=== PATIENT | female | born 1945 | race Caucasian/White ===

== ENCOUNTER 2018-03-29 00:41 | Emergency (ER) | payer MEDICARE ==
[2018-03-29] MEDS ORDERED: Metoclopramide 10 MG/2 ML SDV IVPUSH ONE (01:12)
[2018-03-29] MEDS ORDERED: fentaNYL 100 MCG/2 ML SDV IVPUSH ONE ×2 (01:12→01:58)
[2018-03-29] MEDS ORDERED: Sodium Chloride 0.9% 1,000 ML IV ONE (01:12)
--- NOTE | 2018-03-29 01:12 | EDM.PDOC ---
ED HPI GENERAL MEDICAL PROBLEM - General Chief Complaint: Abdominal Pain Stated Complaint: ABD PAIN, HIGH BP [id number] Time Seen by Provider: 03/29/18 01:04 Source of Information: Reports: Patient History Limitations: Reports: No Limitations - History of Present Illness INITIAL COMMENTS - FREE TEXT/NARRATIVE: ED with c/o severe cramping vomiting and diarrhea starting at 1100. Emesis x2 and 3 loosed stools. Denies presence of blood. No other family members ill. BP elevated, states takes Starr berries to control , No primary care. Has not checked BP for years. Lower Abdominal Pain Score (Numeric/FACES): 8 - Related Data Allergies Allergy/AdvReac Type Severity Reaction Status Date / Time Penicillins Allergy Anaphylactic Verified 03/29/18 00:48 Shock Sulfa (Sulfonamide Allergy Anaphylactic Verified 03/29/18 00:48 Antibiotics) Shock tetracycline Allergy Anaphylactic Verified 03/29/18 00:48 Shock Home Meds: Home Meds [facility] [[place] [facility]] 1 tab PO DAILY 03/29/18 [History] ED ROS GENERAL - Review of Systems Review Of Systems: ROS reveals no pertinent complaints other than HPI. Constitutional: Denies: Fever, Chills HEENT: Reports: No Symptoms Respiratory: Reports: No Symptoms Cardiovascular: Reports: No Symptoms GI/Abdominal: Reports: Abdominal Pain, Diarrhea, Nausea, Vomiting : Reports: No Symptoms Musculoskeletal: Reports: No Symptoms Skin: Reports: No Symptoms Neurological: Reports: No Symptoms Psychiatric: Reports: Anxiety ED EXAM, GI/ABD - Physical Exam Exam: See Below Exam Limited By: No Limitations General Appearance: Alert, Anxious, Moderate Distress Ears: Normal External Exam Nose: Normal Inspection Throat/Mouth: Normal Inspection, Normal Lips Head: Atraumatic, Normocephalic Neck: Normal Inspection, Supple, Full Range of Motion Respiratory/Chest: No Respiratory Distress, Lungs Clear, Normal Breath Sounds Cardiovascular: Normal Peripheral Pulses GI/Abdominal Exam: Abnormal Bowel Sounds (hyperactive [id number]). No: Distended Rectal (Female) Exam: Normal Exam, Normal Rectal Tone, Heme - Stool Back Exam: Normal Inspection Extremities: Normal Inspection Neurological: Alert, Oriented, Normal Cognition Psychiatric: Anxious Skin Exam: Warm, Dry, Intact, Pallor Course - Vital Signs Last Recorded V/S: Last Vital Signs Temp 97.4 F 03/29/18 00:52 Pulse 73 03/29/18 00:52 Resp 21 H 03/29/18 00:52 BP 206/106 H 03/29/18 00:52 Pulse Ox 98 03/29/18 00:52 - Orders/Labs/Meds Labs: Laboratory Tests 03/29/18 03/29/18 03/29/18 Range/Units 00:55 00:55 00:55 WBC 15.3 H (5.0-10.0) 10^3/uL RBC 5.55 H (4.2-5.4) 10^6/uL Hgb 14.7 (12.0-16.0) g/dL Hct 44.0 (37.0-47.0) % MCV 79.3 L (80-100) fL MCH 26.5 L (27.0-34.0) pg MCHC 33.4 (33.0-35.0) g/dL Plt Count 315 (150-450) 10^3/uL Neut % (Auto) 87.0 H (42.2-75.2) % Lymph % (Auto) 9.3 L (20.5-50.1) % Morrill % (Auto) 3.5 (2-8) % Eos % (Auto) 0.1 L (1.0-3.0) % Baso % (Auto) 0.1 (0.0-1.0) % Sodium 136 (135-145) mmol/L Potassium 3.7 (3.6-5.0) mmol/L Chloride 100 L (101-111) mmol/L Carbon Dioxide 25.0 (21.0-31.0) mmol/L Anion Gap 14.7 BUN 15 (7-18) mg/dL Creatinine 0.9 (0.6-1.3) mg/dL Est Cr Clr Drug Dosing 56.56 mL/min Estimated GFR (MDRD) > 60 BUN/Creatinine Ratio 16.66 Glucose 167 H (74-105) mg/dL Calcium 9.5 (8.4-10.2) mg/dl Total Bilirubin 0.7 (0.2-1.0) mg/dL AST 24 (10-42) IU/L ALT 14 (10-60) IU/L Alkaline Phosphatase 83 (42-121) IU/L C-Reactive Protein 1.3 (0.0-1.3) mg/dL Total Protein 8.0 (6.7-8.2) g/dl Albumin 4.3 (3.2-5.5) g/dl Globulin 3.7 Albumin/Globulin Ratio 1.16 Amylase 71 (28-100) U/L Lipase 25 (22-51) U/L Meds: Medications Discontinued Medications Generic Name Dose Route Start Last Admin Trade Name Bobyq PRN Reason Stop Dose Admin Fentanyl 25 mcg 03/29/18 01:12 03/29/18 01:21 Sublimaze IVPUSH 03/29/18 01:13 25 mcg ONETIME ONE Administration Fentanyl 25 mcg 03/29/18 01:58 03/29/18 04:06 Sublimaze IVPUSH 03/29/18 01:59 Not Given ONETIME ONE Sodium Chloride 1,000 mls @ 999 mls/hr 03/29/18 01:12 03/29/18 01:22 Normal Saline IV 03/29/18 02:12 999 mls/hr .BOLUS ONE Administration Iopamidol 75 ml 03/29/18 01:48 03/29/18 04:06 Isovue-300 (61%) IVPUSH 03/29/18 01:49 Not Given ONETIME ONE Metoclopramide HCl 10 mg 03/29/18 01:12 03/29/18 01:22 Reglan IVPUSH 03/29/18 01:13 10 mg ONETIME ONE Administration - Radiology Interpretation Free Text/Narrative:: CT abdomen- gastroenteritis Departure - Departure Time of Disposition: 03:56 Disposition: Home, Self-Care 01 Condition: Good Clinical Impression: Gastroenteritis - Discharge Information Instructions: Nausea and Vomiting, Adult, [id number] Forms: ED Department Discharge Additional Instructions: clear liquids today, advance diet slowly check blood pressure, follow up with primary care urgent follow up if increased pain and vomiting.
[2018-03-29 01:32] LABS: CHLORIDE,CL 100 mmol/L (101-111); SODIUM,NA 136 mmol/L (135-145)
[2018-03-29] MEDS ORDERED: Iopamidol 612 MG/ML 75 ML Bottle IVPUSH ONE (01:48)
--- NOTE | 2018-03-29 12:46 | EKG ---
03/29/2018 - DEVANTE WOOD - TIME: 1:20 a.m. FINDINGS: EKG shows normal sinus rhythm. [facility] /[id number]
== END 2018-03-29 04:13 | disposition home or self-care (01) ==
LOC: DL.ED 00:41
DX: K52.9 Noninfective gastroenteritis and colitis, unspecified (principal); Z88.0 Allergy status to penicillin; Z88.2 Allergy status to sulfonamides; Z88.1 Allergy status to other antibiotic agents
CPT/HCPCS: 36415; 74176; 80053; 82150; 82272; 83690; 85025; 86140; 93005; 93010; 96361; 96374; 96375; 99283; 99284; J2765; J3010; J7030